=== PATIENT | female | born 1955 | race Caucasian/White ===

== ENCOUNTER 2017-05-24 07:42 | Day surgery (SDC) | payer OTHER ==
[~2017-05-24 07:42] MED LIST: Lactated Ringers 1,000 ML IV SCH
[2017-05-24] MEDS ORDERED: Propofol 200 MG/20 ML SDV ONE ×2 (09:05→09:55)
[2017-05-24] MEDS ORDERED: fentaNYL 100 MCG/2 ML SDV ONE (09:05)
[2017-05-24 10:34] VITALS: BP 119/65
--- NOTE | 2017-05-24 13:47 | OR ---
PREOPERATIVE DIAGNOSIS: History of polyps. POSTOPERATIVE DIAGNOSIS: Low rectal polyp. PROCEDURE PROPOSED: Total flexible colonoscopy. PROCEDURE DONE: Total flexible colonoscopy with polypectomy x1. INDICATION: This is a 61-year-old female who has history of multiple polyps and has had multiple colonoscopies over the years. Her last one was 5 years ago. She has also had a transanal excision of a rectal polyp. TECHNIQUE: The patient was brought to the endoscopy suite and placed in left lateral decubitus position. She was sedated per [employer] AND DEVELOPMENT DIRECTOR with propofol. The flexible video colonoscope was then passed transanally and under visualization, advanced to the cecum. Examination revealed a normal ascending, transverse, descending, and sigmoid colon. No signs of any diverticulosis or colitis. Then, in the rectum, just inside the anus, there was a small polyp, possibly in close proximity to a previous transanal polyp that was removed. I was able to get a snare around it and burned through the base and retrieved the polyp with suction. She tolerated this procedure well. FINAL IMPRESSION: 1. Low rectal polyp removed. 2. History of previous polyps. PLAN: She will be sent a letter with pathology report. I felt that she should have a 5-year followup exam. SCM: 05/24/2017 10:14:21 MODL: 05/24/2017 13:39:52 /[id number]
--- NOTE | 2017-06-03 09:53 | LETTER ---
05/29/2017 RE: ARSEN LEZAMA : 1955 Dear Arsen, The polyp removed from your rectum was a benign tubular adenoma. This is considered a precancerous type polyp, but there were no worrisome changes within this polyp. I feel that you should continue to have your colon evaluated every 5 years due to your history of polyps. If you have any further questions regarding this, feel free to call. Respectfully,
== END 2017-05-24 11:15 | disposition home or self-care (01) ==
LOC: VM.SDS 07:42
PROVIDERS: ATTEND Surgery
DX: Z12.11 Encounter for screening for malignant neoplasm of colon (principal); D12.8 Benign neoplasm of rectum; Z86.010 Personal history of colon polyps; I10 Essential (primary) hypertension; E78.5 Hyperlipidemia, unspecified; E03.9 Hypothyroidism, unspecified; E66.01 Morbid (severe) obesity due to excess calories; G47.33 Obstructive sleep apnea (adult) (pediatric); J45.20 Mild intermittent asthma, uncomplicated; F32.9 Major depressive disorder, single episode, unspecified; I50.32 Chronic diastolic (congestive) heart failure; Z88.1 Allergy status to other antibiotic agents; Z79.82 Long term (current) use of aspirin; Z79.899 Other long term (current) drug therapy; Z90.710 Acquired absence of both cervix and uterus; Z90.49 Acquired absence of other specified parts of digestive tract; Z98.890 Other specified postprocedural states
CPT/HCPCS: 45385; J2704; J3010; J7120

== ENCOUNTER 2022-07-26 09:58 | Day surgery (SDC) | payer BC, MEDICARE ==
[2022-07-26] MEDS ORDERED: fentaNYL 100 MCG/2 ML SDV ONE (11:38)
[2022-07-26] MEDS ORDERED: Midazolam 1 MG/ML 2 ML SDV ONE (11:38)
[2022-07-26] MEDS ORDERED: Propofol 200 MG/20 ML SDV ONE (11:38)
[2022-07-26 13:00] VITALS: BP 131/64; PULSE 60
== END 2022-07-26 16:19 | disposition home or self-care (01) ==
LOC: VM.SDS 09:58
PROVIDERS: ATTEND Family Medicine
DX: Z12.11 Encounter for screening for malignant neoplasm of colon (principal); D12.5 Benign neoplasm of sigmoid colon; D12.9 Benign neoplasm of anus and anal canal; I11.0 Hypertensive heart disease with heart failure; I50.9 Heart failure, unspecified; G47.33 Obstructive sleep apnea (adult) (pediatric); E03.9 Hypothyroidism, unspecified; E66.9 Obesity, unspecified; G43.909 Migraine, unspecified, not intractable, without status migrainosus; Z98.890 Other specified postprocedural states; Z79.899 Other long term (current) drug therapy; Z79.890 Hormone replacement therapy
CPT/HCPCS: 00812; 45380; 45385; J2250; J2704; J3010; J7120; 88305